=== PATIENT | female | born 2000 | race Caucasian/White ===

== ENCOUNTER 2023-05-03 01:54 | Emergency (ER) | payer MEDICAID ==
[~2023-05-03] VITALS: Ht 157.5 cm; Wt 45.4 kg
[2023-05-03 03:11] LABS: APPEARANCE,URINE CLOUDY (CLEAR); BILIRUBIN,URINE NEGATIVE (NEGATIVE); BLOOD, URINE 3+ Ery/uL (NEGATIVE); COLOR,URINE RED (YELLOW); KETONES,URINE NEGATIVE (NEGATIVE); LEUKOCYTE ESTERASE ,URINE 2+ (NEGATIVE); NITRITE, URINE POSITIVE (NEGATIVE); PH,URINE 5.5 (5.0-8.0); PROTEIN,URINE 3+ mg/dl (NEGATIVE); UGLUCOSE NEGATIVE (NEGATIVE)
[2023-05-03 03:26] LABS: ADD URINE CULTURE YES; BACTERIA,URINE 1+ /HPF (None Seen); RBC,URINE 81-100 /HPF (0-2); SQUAMOUS EPITHELIAL CELL,UR 0-2 /HPF (None Seen); WBC,URINE 21-50 /HPF (0-3)
[2023-05-03 03:31] LABS: PREGNANCY TEST URINE QUAL NEGATIVE (NEGATIVE)
[2023-05-03] MEDS ORDERED: PHEN-705 PO ×2 (03:37→03:56)
[2023-05-03] MEDS ORDERED: CEPH250C PO ×2 (03:37→03:56)
[2023-05-03] MEDS ORDERED: CEPHALEXIN MONOHYDRATE 250 MG CAPSULE PO ONE ×2 (03:41→04:00)
[2023-05-03] MEDS ORDERED: PHENAZOPYRIDINE HCL 200 MG TABLET ONE (03:52)
[2023-05-03 03:58] VITALS: BP 151/74; TEMP 97.9; O2SAT 97
[2023-05-03] MEDS ORDERED: PHENAZOPYRIDINE HCL 200 MG TABLET PO ONE (04:00)
== END 2023-05-03 03:59 | disposition home or self-care (01) ==
LOC: ER 01:58
DX: N30.01 Acute cystitis with hematuria (principal); J45.909 Unspecified asthma, uncomplicated; E03.9 Hypothyroidism, unspecified; Z79.899 Other long term (current) drug therapy; Z88.2 Allergy status to sulfonamides
CPT/HCPCS: 81001; 84703-TC; 87086-TC